=== PATIENT | female | born 1965 | race African-American/Black ===

== ENCOUNTER 2016-12-25 16:11 | Emergency (ER) | payer OTHER ==
[~2016-12-25] VITALS: Ht 175.3 cm; Wt 62.1 kg
[~2016-12-25 16:11] MED LIST: ANTIVERT25 MG PO; BACTRIM,SEPT1 TABLET PO; CEFDINIR300 MG PO; ERGOCALCIF50000 UNIT PO; FOLTX TABLET1 EAC1 PO; GABAPENTIN300 MG PO; INDOCIN25 MG PO; LORTAB 5-325 M1 EACH PO; MECLIZINE HCL25 MG PO; MOTRIN600 MG PO; MOTRIN800 MG PO; MUCINEX1200 MG PO; ONE DAILY WOME1 EACH PO; PREDNISONE20 MG PO; PYRIDIUM100 MG PO; REMERON15 M2 PO; ROBITUSSIN AC,T10 ML PO; VALIUM5 MG PO; VENTOLIN HFA18 GM IH; ZITHROMAX Z-PA250 MG PO; ZOLOFT50 MG PO
[2016-12-25] MEDS ORDERED: MOTRIN600 MG PO (18:25)
[2016-12-25 18:48] VITALS: BP 127/83
== END 2016-12-25 18:48 | disposition home or self-care (01) ==
LOC: EME 16:11
DX: T74.11XA Adult physical abuse, confirmed, initial encounter (principal); S60.221A Contusion of right hand, initial encounter; Y04.0XXA Assault by unarmed brawl or fight, initial encounter; Y07.03 Male partner, perpetrator of maltreatment and neglect; F17.200 Nicotine dependence, unspecified, uncomplicated
CPT/HCPCS: 73130; 99281; 99284

== ENCOUNTER 2017-06-12 02:11 | Emergency (ER) | payer OTHER ==
[~2017-06-12] VITALS: Ht 175.3 cm; Wt 60.4 kg
[2017-06-12] MEDS ORDERED: LIDODERM 5% P1 PATCH TD (04:22)
[2017-06-12] MEDS ORDERED: FLEXERIL10 MG PO (04:22)
[2017-06-12 05:11] VITALS: BP 142/95
== END 2017-06-12 05:12 | disposition home or self-care (01) ==
LOC: EME 02:11
DX: S10.83XA Contusion of other specified part of neck, initial encounter (principal); S20.211A Contusion of right front wall of thorax, initial encounter; Y04.0XXA Assault by unarmed brawl or fight, initial encounter; F17.200 Nicotine dependence, unspecified, uncomplicated; K76.0 Fatty (change of) liver, not elsewhere classified; J43.9 Emphysema, unspecified
CPT/HCPCS: 71250; 72125; 99281; 99283

== ENCOUNTER 2017-07-19 05:55 | Emergency (ER) | payer OTHER ==
[~2017-07-19] VITALS: Ht 175.3 cm; Wt 54.2 kg
[~2017-07-19 05:55] MED LIST changes: +FLEXERIL10 MG PO; +LIDODERM 5% P1 PATCH TD
[2017-07-19] MEDS ORDERED: IBUPROFEN800 MG PO (08:40)
[2017-07-19 09:03] VITALS: BP 122/85
== END 2017-07-19 09:04 | disposition home or self-care (01) ==
LOC: EME → EDBD 05:55 → EME 09:04
DX: S16.1XXA Strain of muscle, fascia and tendon at neck level, initial encounter (principal); S20.211A Contusion of right front wall of thorax, initial encounter; Y04.2XXA Assault by strike against or bumped into by another person, initial encounter; F17.200 Nicotine dependence, unspecified, uncomplicated
CPT/HCPCS: 71101; 72040; 90832; 99281; 99285

== ENCOUNTER 2017-11-17 15:28 | Emergency (ER) | payer OTHER ==
[~2017-11-17] VITALS: Ht 175.3 cm; Wt 48.7 kg
[~2017-11-17 15:28] MED LIST changes: +IBUPROFEN800 MG PO
[2017-11-17] MEDS ORDERED: MECLIZINE HCL25 MG PO (20:41)
[2017-11-17 21:45] VITALS: BP 153/96
== END 2017-11-17 21:46 | disposition home or self-care (01) ==
LOC: EME 15:28
DX: F10.129 Alcohol abuse with intoxication, unspecified (principal); I10 Essential (primary) hypertension; F17.200 Nicotine dependence, unspecified, uncomplicated
CPT/HCPCS: 99281; 99285

== ENCOUNTER 2018-01-09 11:49 | Emergency (ER) | payer OTHER ==
[~2018-01-09] VITALS: Ht 175.3 cm; Wt 59.1 kg
[2018-01-09 12:33] LABS: BASOPHIL (%) 0.4 % (0-1); EOSINOPHIL (%) 1.6 % (0-5); EOSINOPHIL COUNT 0.1 K/uL (0-0.3); HEMATOCRIT 40.4 % (36.0-46.0); HEMOGLOBIN 14.3 G/DL (11.9-15.5); IMMATURE GRANULOCYTE (%) 0.3 % (0.0-0.7); LYMPHOCYTE (%) 20.1 % (15-42); LYMPHOCYTE COUNT 1.6 K/uL (1.0-2.8); MCHC 35.4 G/DL (30.0-36.0); MCV 90.4 FL (83-99); MONOCYTE (%) 7.1 % (3-12); MONOCYTE COUNT 0.6 K/uL (0-0.8); NEUTROPHIL (%) 70.5 % (45-76); NEUTROPHIL COUNT 5.5 K/uL (1.8-6.4); PLATELET COUNT 225 K/uL (156-360); RBC DIS.WIDTH-CV 12.7 % (11.8-14.6); RBC DIS.WIDTH-SD 42.3 % (39-53); RED BLOOD COUNT 4.47 M/uL (3.80-5.20); WHITE BLOOD COUNT 7.7 K/uL (4.1-10.2)
[2018-01-09 12:43] LABS: CHLORIDE 102 mEq/L (99-109); POTASSIUM 3.3 mEq/L (3.7-5.4); SODIUM 142 mEq/L (136-147)
[2018-01-09 12:45] LABS: GLUCOSE 128 mg/dL (70-99)
[2018-01-09 12:49] LABS: CREATININE 0.9 mg/dL (0.6-1.3); GFR ESTIMATE (CALCULATED) > 59 mL/min/
[2018-01-09 12:50] LABS: UREA NITROGEN (BUN) 15 mg/dL (9-23)
[2018-01-09] MEDS ORDERED: ANTIVERT25 MG PO (13:37)
[2018-01-09 13:56] VITALS: BP 111/77
== END 2018-01-09 13:57 | disposition home or self-care (01) ==
LOC: EME 11:49
PROVIDERS: Emergency Medicine
DX: R42 Dizziness and giddiness (principal); I10 Essential (primary) hypertension; F17.200 Nicotine dependence, unspecified, uncomplicated
CPT/HCPCS: 70450; 80048; 85025; 93005; 99281; 99284